=== PATIENT | male | born 1970 | race African-American/Black ===

== ENCOUNTER 2020-01-31 07:24 | Inpatient (IN) | payer OTHER ==
[~2020-01-31] VITALS: Ht 193 cm; Wt 111.1 kg
[2020-01-31 07:28] VITALS: BP 159/105
[2020-01-31 08:33] LABS: ABSOLUTE NEUTROPHILS 2.7 thou/uL (1.4-8.2); BASOPHILS 1.2 % (0.0-2.0); EOSINOPHILS 2.7 % (0.0-3.0); HEMATOCRIT 39.6 % (42.0-52.0); LYMPHOCYTES 41.7 % (24.0-44.0); MCH 30.6 pg (26.0-34.0); MCHC 35.3 g/dL (28.0-37.0); MCV 86.6 fL (80.0-100.0); MONOCYTES 9.5 % (1.0-8.0); PLATELET COUNT 393 thou/uL (150-400); POLYS 44.9 % (36.0-66.0); RBC 4.58 mil/uL (4.50-6.00); RDW 14.7 % (10.5-14.5); WBC 5.9 thou/uL (4.0-11.0)
[2020-01-31 08:51] LABS: CALCIUM 9.4 mg/dL (8.5-10.1); CREATININE 1.2 mg/dL (0.7-1.3); POTASSIUM 4.1 mmol/L (3.5-5.1)
[2020-01-31 10:22] VITALS: BP 152/91
[2020-01-31 11:01] VITALS: BP 152/91
[2020-01-31 12:33] VITALS: BP 150/94
[2020-01-31 12:43] VITALS: BP 150/94
[2020-01-31 20:00] VITALS: BP 148/77
[2020-02-01] VITALS: BP 123/65
[2020-02-01 06:51] LABS: ABSOLUTE NEUTROPHILS 7.8 thou/uL (1.4-8.2); BASOPHILS 0.6 % (0.0-2.0); EOSINOPHILS 0.1 % (0.0-3.0); HEMATOCRIT 35.5 % (42.0-52.0); HEMOGLOBIN 12.3 gm/dL (14.0-18.0); MCH 30.1 pg (26.0-34.0); MCHC 34.5 g/dL (28.0-37.0); MCV 87.2 fL (80.0-100.0); MONOCYTES 6.4 % (1.0-8.0); PLATELET COUNT 346 thou/uL (150-400); POLYS 80.9 % (36.0-66.0); RBC 4.07 mil/uL (4.50-6.00); RDW 14.6 % (10.5-14.5); WBC 9.6 thou/uL (4.0-11.0)
[2020-02-01 07:11] LABS: CALCIUM 8.6 mg/dL (8.5-10.1); CREATININE 1.1 mg/dL (0.7-1.3); MAGNESIUM 2.1 mg/dL (1.8-2.4); POTASSIUM 4.2 mmol/L (3.5-5.1)
[2020-02-01 08:00] VITALS: BP 135/78
[2020-02-01 15:14] VITALS: BP 160/93
[2020-02-01 16:45] LABS: CHOLESTEROL 153 mg/dL (<200); HDL CHOLESTEROL 44 mg/dL (>40); LDL CHOLESTEROL 69 mg/dL (<100); TC:HDL 3.5 Ratio (Not establshd); TRIGLYCERIDE 204 mg/dL (<150); VLDL 41 mg/dL (<40)
[2020-02-01 20:00] VITALS: BP 123/75
[2020-02-01 21:15] VITALS: BP 143/90
[2020-02-02 04:07] VITALS: BP 119/80
[2020-02-02 07:21] VITALS: BP 128/68
--- NOTE | 2020-02-02 10:21 | HC ---
[facility] [place] [address] CONSULTATION Name: AMINATA JIMENEZ Room #: 439-P [facility] IN .R.#: [id number] Admission: 01/31/20 Attend Phys: Brad Yi MD Discharge: Date of : 68 Report #: [id number] THIS REPORT FOR: cc: VINNY - Family physician unknown VINNY - Family physician unknown Radha Patel MD ~ CC: VINNY unknown Brad Yi DATE OF SERVICE: 02/01/2020 ENDOCRINE CONSULTATION NOTE CONSULTING PHYSICIAN: Dr. Yi. REASON FOR CONSULTATION: Type 2 diabetes mellitus. HISTORY OF PRESENT ILLNESS: This is a 49-year-old male patient who presented to [facility] with the main issue of right foot infection. This developed following a foot injury in October of this year, which was followed by wound, nonhealing. On presentation, the patient was found to have an active infection with evidence of right distal first metatarsal osteomyelitis and septic arthritis and underwent incision and drainage on the along with antibiotic therapy. During this hospital stay, the patient was investigated for the possibility of diabetes and was found to have a hemoglobin A1c of 6.6%. The patient does not have a prior formal history of diabetes and has not appreciated much issue with weight changes, polyuria, polydipsia, but has been somewhat more fatigued than usual. The patient does not take any chronic medications. He does have family history of diabetes mellitus. REVIEW OF SYSTEMS: CONSTITUTIONAL: Fatigue and tiredness. No fever. No weight changes. HEENT: Negative for sore throat, sinus pain or ear drainage. PULMONARY: No shortness of breath, cough or hemoptysis. CARDIAC: Negative for chest pain, palpitations, syncope or presyncope or lower extremity edema. GASTROINTESTINAL: Negative for abdominal pain, nausea, vomiting or changes in bowel movement frequency. NEUROLOGY: Noted for intermittent issues with foot numbness and tingling, but not loss of consciousness, seizure activity or severe frequent headaches. MUSCULOSKELETAL: Noted for a nonhealing right foot wound as noted above. PSYCHIATRIC: Negative for delusions, hallucinations, depression or other major issues. Otherwise, review of systems noncontributory other than those mentioned in HPI. PAST MEDICAL HISTORY: Nonhealing right foot wound. [address] [address] CONSULTATION Name: AMINATA JIMENEZ Room #: 439-P [facility] IN ..#: [id number] Admission: 01/31/20 Attend Phys: Brad Yi MD Discharge: Date of : 68 Report #: [id number] OUTPATIENT MEDICATIONS: None. ALLERGIES: No known drug allergies. FAMILY HISTORY: Diabetes mellitus. SOCIAL HISTORY: The patient works in sales. He is single, has one child who is 11 years old. Denies use of tobacco and drinks alcohol only occasionally. PHYSICAL EXAMINATION: GENERAL: Pleasant -Mongolian male patient who is not in apparent pain or distress. VITAL SIGNS: Blood pressure is 160/93 mmHg, heart rate is 68 beats per minute, respirations 20 per minute, temperature 36.7 degrees Celsius. CONSTITUTIONAL: The patient is sitting upright, appears comfortable, not in apparent distress. HEENT: Anicteric sclerae. Intact extraocular motions. NECK: Supple, without JVD, carotid bruits or lymphadenopathy. I do not appreciate thyromegaly. CHEST: Clear to auscultation with good air entry bilaterally. No wheeze or crackles. HEART: Regular rate and rhythm without murmurs or gallops. ABDOMEN: Soft, lax. No tenderness, no organomegaly, no guarding. EXTREMITIES: Lower extremity exam is negative for edema. The right foot is wrapped in surgical dressing. NEUROLOGIC: Awake, alert and oriented to time, place and person. The remainder of the examination is nonfocal. PSYCHIATRIC: Pleasant, interactive. Normal mood and affect. LABORATORY DATA: Blood glucose values during his hospital stay have ranged from 101-144 mg/dL. Otherwise, sodium 135, potassium 4.2, chloride 100, CO2 of 23, anion gap 12, BUN 15, creatinine 1.1, glucose 157, calcium 8.6, magnesium 2.1, EGFR 86, lactic acid 1.0. White blood count 9.6, hemoglobin 12.3, hematocrit 35.5, platelets 346. Vitamin B12 of 536. COVID-19 was non-detected. Hemoglobin A1c is 6.6%. ASSESSMENT AND PLAN: 1. Type 2 diabetes mellitus. The patient's measured hemoglobin A1c confirms a diagnosis of type 2 diabetes mellitus, likely early in the process. The patient was rather anxious about this new diagnosis and I had a lengthy discussion with him about the pathogenesis of type 2 diabetes mellitus, its implications, and the importance of achieving and maintaining adequate glycemic control so as to avoid diabetic complications. I explained that adequate sustained control of his blood glucose levels stands to avoid complications to a large extent, which he seemed to be reassured learning about. Given the current degree of [facility] [address] [place] [address] CONSULTATION Name: AMINATA JIMENEZ Room #: 439-P [facility] IN [facility].#: [id number] Admission: 01/31/20 Attend Phys: Brad Yi MD Discharge: Date of : 68 Report #: [id number] hyperglycemia, I believe that the patient would be well cared for by metformin monotherapy in the form of Glucophage 750 mg b.i.d. to be started after discharge to ensure that nothing further is needed from the imaging standpoint or medicinally while he is still in the hospital. I stressed the importance of effective lifestyle changes including diet and exercise changes as well as routine blood glucose monitoring and routine medical followup, which he seemed to understand well. 2. Hypertension. The patient's level of blood pressure control has been marginal and on occasion elevated during this hospital stay. I counseled the patient about the importance of maintaining adequate blood pressure control, especially in the setting of active type 2 diabetes mellitus. I will check urine microalbumin level to further evaluate the patient's need for active therapy. 3. Hyperlipidemia. The patient was counseled about the importance of maintaining aggressive lipid control in the setting of type 2 diabetes mellitus. He seemed to understand this well. I will check lipid panel to assess his current state and his need for active therapy. 4. Osteomyelitis. The patient is status post incision and drainage and has done well and is expected to go to surgery tomorrow as well. He is currently on Ancef and is tolerating it well. I certainly appreciate this consultation by Dr. Yi. <ELECTRONICALLY SIGNED> By: Radha Patel MD 02/02/20 1021 1621 1745 Radha Patel MD /nt
[2020-02-02 11:07] LABS: CREATININE (ALB/CR) 131.7 mg/dL (Not Estab.)
--- NOTE | 2020-02-02 16:07 | PATH ---
[facility] [address] [place] [address] PATHOLOGY RPT PROCEDURE Name: AMINATA WOLF Jayshree Room #: 439-P ADM IN M.R.#: [id number] Admission: 01/31/20 Date of : 68 Discharge: Report #: [id number] Path Case #: [id number] [facility] Accession Number: [id number] . 01 Material submitted: . foot - BONE FOR PATHOLOGY. Modifiers: right . 01 Clinical history: . tibial sesamoidectomy . 02 Diagnosis: Bone, incision and drainage: - Fragments of bone and cartilage with marked acute inflammation as well as granulation tissue, consistent with debridement tissue. (IUV:pit 02/02/2020) QTP 02/02/2020 1328 Local . 02 Electronically signed: . Latasha Silva MD, Pathologist NPI- [id number] . 01 Gross description: . The specimen is received in formalin, labeled "Aminata Wolf, bone for pathology" and "tibial" per requisition. Received is a fragment of yellow kunz cartilaginous bone with a small amount of attached soft tissue measuring 1.3 x 1.2 x 0.5 cm which is entirely submitted in A1 following the calcification. (SDY; 02/01/2020) SYU/SYU 02/01/2020 1052 Local . 02 Pathologist provided ICD-10: M86.179 . 02 CPT . 395015, 641177 Specimen Comment: A courtesy copy of this report has been sent to [phone] Specimen Comment: [phone] Specimen Comment: Report sent to / DR CM Performed at: [address], [place] [id number] MD Genaro Montoya MD Phone: [phone] Performed at: [address] [id number] MD Latasha Silva MD Phone: [phone]
[2020-02-02 16:20] VITALS: BP 128/68
[2020-02-02] MEDS ORDERED: MIRALAX17 GM PO (16:29)
[2020-02-02] MEDS ORDERED: TYLENOL325 MG PO (16:29)
[2020-02-02] MEDS ORDERED: CEFAZOLIN2 GM/1001 IVPB (16:29)
[2020-02-02] MEDS ORDERED: GLUCOPHAGE XR750 M1 PO (16:29)
== END 2020-02-02 17:17 | disposition home or self-care (01) | DRG 493 ==
LOC: ER 07:24 → 4S 12:23 → EROBS 12:23 → 3W 12:45 → 4S 02-01 21:36
PROVIDERS: Emergency Medicine; Internal Medicine; Nurse Practitioner; ADMIT Hospitalist
PROC: 0QBG0ZZ Excision of Right Tibia, Open Approach (ICD-10-PCS; principal; 2020-01-31)
PROC: 02HV33Z Insertion of Infusion Device into Superior Vena Cava, Percutaneous Approach (ICD-10-PCS; 2020-02-01)
PROC: 0QBG0ZZ Excision of Right Tibia, Open Approach (ICD-10-PCS; 2020-02-02)
DX: M00.9 Pyogenic arthritis, unspecified (principal); M86.8X8 Other osteomyelitis, other site; E11.69 Type 2 diabetes mellitus with other specified complication; E78.5 Hyperlipidemia, unspecified; E11.621 Type 2 diabetes mellitus with foot ulcer; E11.42 Type 2 diabetes mellitus with diabetic polyneuropathy; Z83.3 Family history of diabetes mellitus; Z20.828 Contact with and (suspected) exposure to other viral communicable diseases
CPT/HCPCS: 10102; 10779; 27000; 50010; 50101; 50386; 53078; 57091; 57103; 57178; 62110; 62900

== ENCOUNTER → 2020-03-19 | Outpatient (CLI) | payer BC, OTHER ==
[~2020-03-19] MED LIST: CEFAZOLIN2 GM/1001 IVPB; GLUCOPHAGE XR750 M1 PO; MIRALAX17 GM PO; TYLENOL325 MG PO
== END ==
LOC: MRI 14:24
DX: S93.141A Subluxation of metatarsophalangeal joint of right great toe, initial encounter (principal); A49.01 Methicillin susceptible Staphylococcus aureus infection, unspecified site; M86.9 Osteomyelitis, unspecified; M25.474 Effusion, right foot; L97.519 Non-pressure chronic ulcer of other part of right foot with unspecified severity; X58.XXXA Exposure to other specified factors, initial encounter; Y93.89 Activity, other specified; Y92.89 Other specified places as the place of occurrence of the external cause; Y99.8 Other external cause status

== ENCOUNTER → 2020-03-26 | Outpatient (CLI) | payer BC, OTHER ==
[~2020-03-26] MED LIST changes: +GLUCOPHAGE XR750 MG PO; +MULTI VITAMIN1 EACH PO; +NORCO 5-325 TA1 EAC1 PO
== END ==
LOC: LAB 13:39
PROVIDERS: ATTEND Student in an Organized Health Care Education/Training Program
DX: Z01.812 Encounter for preprocedural laboratory examination (principal); Z11.59 Encounter for screening for other viral diseases

== ENCOUNTER → 2020-03-29 | Day surgery (SDC) | payer OTHER ==
[~2020-03-29] VITALS: Ht 193 cm; Wt 116.1 kg
[2020-03-29 10:13] VITALS: BP 156/87
[2020-03-29 13:44] VITALS: BP 156/87
--- NOTE | 2020-03-30 10:08 | EKG ---
[facility] [place] [address] ELECTROCARDIOGRAM REPORT Name: AMINATA JIMENEZ Room #: REG [facility].#: [id number] Admission: 03/29/20 Attend Phys: Antonio Vazquez DPM Discharge: Date of : 68 Report #: [id number] THIS REPORT FOR: cc: FAM - Family physician unknown FAM - Family physician unknown Laurent Nolasco MD ~ THIS REPORT FOR: //name// [facility] Test Date: 2020-03-29 Test Time: 09:58:47 Pat Name: AMINATA JIMENEZ Department: Room: Gender: Security System Engineer: ARELIS : 1970 Requested By: Lee Ann Dunn Order Number: [id number] MD: Laurent Nolasco Measurements Intervals Boomer Rate: 72 P: 55 MI: 159 QRS: 39 QRSD: 98 T: 17 QT: 348 QTc: 381 Interpretive Statements Sinus rhythm Abnormal R-wave progression, early transition No previous ECG available for comparison Electronically Signed On 03-30-2020 10:07:52 CDT by Laurent Nolasco [email or web address] <ELECTRONICALLY SIGNED> By: Laurent Nolasco MD 03/30/20 1007 [id number] [id number] Laurent Nolasco MD /MISTI
--- NOTE | 2020-04-01 17:07 | PATH ---
[facility] [address] [place] [address] PATHOLOGY RPT PROCEDURE Name: AMINATA WOLF Jayshree Room #: [facility] M.R.#: [id number] Admission: 03/29/20 Date of : 68 Discharge: Report #: [id number] Path Case #: [id number] [facility] Accession Number: [id number] . 01 Material submitted: . foot - RIGHT PROXIMAL PHALANX. Modifiers: right, proximal . 01 Clinical history: . Right first proximal phalanx and metatarsal osteomyelitis, right first MTPJ septic arthritis Jimenez grade 3 diabetic foot ulcer . 02 Diagnosis: Right proximal phalanx, incision and drainage: - Fragments of bone and cartilage with mild acute and chronic osteomyelitis as well as osteonecrosis, compatible with the provided history of septic arthritis. (IUV/db; 04/01/2020) LBQ 04/01/2020 1538 Local . 02 Electronically signed: . Latasha Silva MD, Pathologist NPI- [id number] . 01 Gross description: . The specimen is received in formalin, labeled "Aminata Wolf, right proximal phalanx" and consists of a pink-kunz bone slice measuring 1.5 x 1.3 x 0.2 cm which is entirely submitted in A1 following decalcification. (SDY; 03/29/2020) SYU/SYU 03/29/2020 1608 Local . 02 Pathologist provided ICD-10: M86.171, M86.671 . 02 CPT . 055477, 135831 Specimen Comment: A courtesy copy of this report has been sent to [phone] Specimen Comment: Report sent to Performed at: [address], [place] [id number] MD Genaro Montoya MD Phone: [phone] Performed at: [address] [id number] MD Latasha Silva MD Phone: [phone]
== END | disposition home or self-care (01) ==
LOC: OR 09:34
PROVIDERS: ATTEND Podiatrist Foot & Ankle Surgery
DX: E11.621 Type 2 diabetes mellitus with foot ulcer (principal); L97.419 Non-pressure chronic ulcer of right heel and midfoot with unspecified severity; M86.8X7 Other osteomyelitis, ankle and foot; G47.30 Sleep apnea, unspecified; Z98.890 Other specified postprocedural states; Z79.899 Other long term (current) drug therapy
CPT/HCPCS: 50010; 50101; 50386; 56526; 56527; 57091; 57268; 62110; 62850; 70005